=== PATIENT | male | born 1980 | race Caucasian/White ===

== ENCOUNTER 2022-04-10 13:07 | Inpatient (IN) | payer OTHER ==
[~2022-04-10] VITALS: Ht 195.6 cm; Wt 147.0 kg
[2022-04-10 15:30] LABS: RED BLOOD COUNT 4.54 M/UL (4.20-5.50); WHITE BLOOD COUNT 23.6 K/UL (4.5-11.0)
[2022-04-10 15:54] LABS: BUN/CREATININE RATIO 24 (0-10)
[2022-04-10] MEDS ORDERED: GABAPENTIN600 MG PO ×2 (18:12→18:13)
[2022-04-10] MEDS ORDERED: HYDROXYZINE HCL25 MG PO (18:13)
[2022-04-10] MEDS ORDERED: BUSPIRONE HCL30 MG PO (18:13)
[2022-04-10] MEDS ORDERED: TYLENOL 8 HOUR650 MG PO (18:14)
[2022-04-10] MEDS ORDERED: VIIBRYD40 MG PO (18:14)
[2022-04-10] MEDS ORDERED: HUMALOG100 UNIT/3 SQ (18:14)
[2022-04-10] MEDS ORDERED: ASPIRIN81 MG PO (18:15)
[2022-04-10] MEDS ORDERED: CLONIDINE HCL0.1 MG PO (18:15)
[2022-04-10] MEDS ORDERED: ATORVASTATIN CA20 MG PO (18:15)
[2022-04-10] MEDS ORDERED: ALLOPURINOL100 MG PO (18:15)
[2022-04-10] MEDS ORDERED: LISINOPRIL40 MG PO (18:15)
[2022-04-10] MEDS ORDERED: MONTELUKAST SOD10 MG PO (18:16)
[2022-04-10] MEDS ORDERED: LEVEMIR FL100 UNIT/1 SQ (18:16)
[2022-04-10] MEDS ORDERED: METFORMIN HCL1000 MG PO (18:16)
[2022-04-10] MEDS ORDERED: HYDROCHLOROTHIA25 MG PO (18:16)
[2022-04-10] MEDS ORDERED: PROTONIX 40 MG40 M1 PO (18:16)
[2022-04-10] MEDS ORDERED: SENNA8.6 MG PO (18:17)
[2022-04-10] MEDS ORDERED: ACTOS15 MG PO (18:17)
[2022-04-10] MEDS ORDERED: ROBAXIN 750 MG750 MG PO (18:18)
[2022-04-10] MEDS ORDERED: PRAZOSIN HCL2 MG PO (18:18)
[2022-04-10] MEDS ORDERED: MELOXICAM15 MG PO (18:18)
[2022-04-10] MEDS ORDERED: OZEMPIC0.25 MG/0. SQ (18:18)
[2022-04-10] MEDS ORDERED: VITAMIN B COMP1 EAC1 PO (18:19)
[2022-04-11 04:20] LABS: HEMOGLOBIN 13.5 gm/dl (14.0-17.5); RED BLOOD COUNT 4.42 M/UL (4.20-5.50); WHITE BLOOD COUNT 20.4 K/UL (4.5-11.0)
[2022-04-11 05:10] LABS: BUN/CREATININE RATIO 26 (0-10)
--- NOTE | 2022-04-11 17:21 | NUR ---
NOTIFIED MD OF PATIENT WANTING DIFLUCAN. MD ORDER DIFLUCAN 150MG PO ONCE.
[2022-04-12 05:41] LABS: HEMOGLOBIN 12.6 gm/dl (14.0-17.5); RED BLOOD COUNT 4.13 M/UL (4.20-5.50); WHITE BLOOD COUNT 16.3 K/UL (4.5-11.0)
[2022-04-12 06:16] LABS: BUN/CREATININE RATIO 13 (0-10)
[2022-04-12 08:14] LABS: IRON BIND.CAP.(TIBC) 215 ug/dL (250-450); IRON SATURATION 7 % (15-55); IRON, SERUM 15 ug/dL (38-169); UIBC 200 ug/dL (111-343)
[2022-04-13 13:24] LABS: BUN/CREATININE RATIO 12 (0-10)
[2022-04-14 10:03] LABS: BUN/CREATININE RATIO 12 (0-10)
[2022-04-15 06:49] LABS: BUN/CREATININE RATIO 12 (0-10)
--- NOTE | 2022-04-15 18:27 | NUR ---
PATIENT STATED MORPHINE IS MAKING HIM ITCH ALL OVER. REQUESTED HYDROCODONE 7.5MG FOR PAIN, STATES PAIN IS NOT CONTROLLED. MD MADE AWARE. MD MADE MEDICATION ADJUSTMENTS. MD STATED MORPHINE TO BE USED FOR DRESSING CHANGES ONLY.
[2022-04-16 05:51] LABS: HEMOGLOBIN 12.5 gm/dl (14.0-17.5); RED BLOOD COUNT 4.16 M/UL (4.20-5.50); WHITE BLOOD COUNT 11.3 K/UL (4.5-11.0)
[2022-04-16 06:07] LABS: BUN/CREATININE RATIO 15 (0-10)
--- NOTE | 2022-04-17 03:10 | NUR ---
DRESSING CHANGE COMPLETED ON RIGHT FOOT SURGICAL WOUND, WOUNDS CLEANED WITH NORMAL SALINE, FOOT CLEANED WITH SOAP AND WATER, WOUNDS PACKED WITH PACKING MATERIAL SOAKED IN IODINE, NON-STICK BANDAGE PLACED OVER WOUNDS AND FOOT WRAPPED, WOUND ON LATERAL PORTION OF THE FOOT IS RED EXTENDING INTO THE GREAT TOE, PATIENT GIVE MORPHINE FOR PAIN PRIOR TO PROCEDURE, PATIENT TOLERATED PROCEDURE WELL WITH MINIMAL PAIN
[2022-04-17 06:16] LABS: HEMOGLOBIN 12.2 gm/dl (14.0-17.5); RED BLOOD COUNT 4.02 M/UL (4.20-5.50)
[2022-04-17 06:38] LABS: BUN/CREATININE RATIO 10 (0-10)
[2022-04-18 05:53] LABS: HEMOGLOBIN 12.4 gm/dl (14.0-17.5); RED BLOOD COUNT 4.06 M/UL (4.20-5.50); WHITE BLOOD COUNT 9.1 K/UL (4.5-11.0)
[2022-04-18 06:16] LABS: BUN/CREATININE RATIO 11 (0-10)
[2022-04-19] MEDS ORDERED: GABAPENTIN300 MG PO (18:06)
[2022-04-19] MEDS ORDERED: INVANZ (18:06)
[2022-04-19] MEDS ORDERED: VANCO (18:06)
[2022-04-20 06:28] LABS: HEMOGLOBIN 12.3 gm/dl (14.0-17.5); WHITE BLOOD COUNT 8.7 K/UL (4.5-11.0)
[2022-04-20 06:55] LABS: BUN/CREATININE RATIO 13 (0-10)
[2022-04-20] MEDS ORDERED: GABAPENTIN300 MG PO (08:10)
--- NOTE | 2022-04-20 14:22 | NUR ---
Spoke with charhouse worker and Dr. Caldwell about patient being transported to [facility] with PICC line via family member. Both said that was okay due to him not having a history of drug abuse.
--- NOTE | 2022-04-20 14:25 | NUR ---
Called report to laminate floor installer at [facility].
--- NOTE | 2022-04-20 16:07 | NUR ---
Patients home medication given back to patient at discharge.
--- NOTE | 2022-04-20 16:25 | NUR ---
prior to d/c informed patient of picc line will be left in placed and that the importance of using it for the purpose of care home antibiotics and no other unnecessary use. patient stated that he does not use illegal drugs and does not intent to use now and the family member who will pick him up will take him to [facility] office if he does that kind of stuff. patient will go from [facility] directly to [facility].
== END 2022-04-20 16:08 | disposition swing bed (61) | DRG 264 ==
LOC: ER1 13:07 → MED SURG 4 17:42 → CDU 17:42 → MED SURG 4 04-11 14:15
PROVIDERS: Family Medicine; Internal Medicine; Podiatrist Foot & Ankle Surgery; ADMIT Internal Medicine
PROC: 0JBQ0ZZ Excision of Right Foot Subcutaneous Tissue and Fascia, Open Approach (ICD-10-PCS; 2022-04-13)
PROC: 0SBN0ZZ Excision of Left Metatarsal-Phalangeal Joint, Open Approach (ICD-10-PCS; principal; 2022-04-15 10:45)
DX: E11.52 Type 2 diabetes mellitus with diabetic peripheral angiopathy with gangrene (principal); E87.1 Hypo-osmolality and hyponatremia; L03.115 Cellulitis of right lower limb; E87.2 Acidosis; E11.621 Type 2 diabetes mellitus with foot ulcer; E11.65 Type 2 diabetes mellitus with hyperglycemia; E66.9 Obesity, unspecified; D50.9 Iron deficiency anemia, unspecified; E83.42 Hypomagnesemia; L97.519 Non-pressure chronic ulcer of other part of right foot with unspecified severity; D72.829 Elevated white blood cell count, unspecified; F43.10 Post-traumatic stress disorder, unspecified; J44.9 Chronic obstructive pulmonary disease, unspecified; G47.00 Insomnia, unspecified; E11.40 Type 2 diabetes mellitus with diabetic neuropathy, unspecified; E87.6 Hypokalemia; I10 Essential (primary) hypertension; F17.210 Nicotine dependence, cigarettes, uncomplicated; Z89.422 Acquired absence of other left toe(s); Z79.4 Long term (current) use of insulin; Z79.899 Other long term (current) drug therapy; Z68.38 Body mass index [BMI] 38.0-38.9, adult; Z79.82 Long term (current) use of aspirin
CPT/HCPCS: 36415; 71045; 73630; 73701; 73718; 80048; 80053; 80202; 81001; 82550; 82962; 83036; 83540; 83550; 83605; 83735; 83880; 84100; 85025; 85027; 85610; 85652; 86140; 87040; 87070; 87077; 87086; 87186; 87205; 93925; 96372; 96374; 96375; 96376; 97116; 97161; 99285; C1751; J0360; J1335; J1650; J2001; J2185; J2250; J2270; J2405; J2543; J2704; J2795; J3010; J3370; J7030; J7050; J7070; Q9967; U0002

== ENCOUNTER → 2022-05-25 | Day surgery (SDC) | payer OTHER ==
[~2022-05-25] VITALS: Ht 195.6 cm; Wt 171.5 kg
[~2022-05-25] MED LIST: ACTOS15 MG PO; ALLOPURINOL100 MG PO; AMLODIPINE BES2.5 MG PO; ASPIRIN81 MG PO; ATORVASTATIN CA20 MG PO; BUSPIRONE HCL30 MG PO; CLONIDINE HCL0.1 MG PO; GABAPENTIN300 MG PO; GABAPENTIN600 MG PO; GLIPIZIDE ER5 MG PO; HUMALOG100 UNIT/3 SQ; HYDROCHLOROTHIA25 MG PO; HYDROXYZINE HCL25 MG PO; INVANZ; KRISTALOSE10 GM PO; LASIX40 MG PO; LEVEMIR FL100 UNIT/1 SQ; LISINOPRIL40 MG PO; LOVENOX; MELOXICAM15 MG PO; METAMUCIL PACK3.4 GM PO; METFORMIN HCL1000 MG PO; MONTELUKAST SOD10 MG PO; OZEMPIC0.25 MG/0. SQ; PRAZOSIN HCL2 MG PO; PROTONIX 40 MG40 M1 PO; ROBAXIN 750 MG750 MG PO; SENNA8.6 MG PO; TYLENOL 8 HOUR650 MG PO; VANCO; VANCOMYCIN1.75 GM/17 IV; VIIBRYD40 MG PO; VITAMIN B COMP1 EAC1 PO
[2022-05-25 07:22] LABS: HEMOGLOBIN 12.5 gm/dl (14.0-17.5); RED BLOOD COUNT 4.29 M/UL (4.20-5.50); WHITE BLOOD COUNT 8.6 K/UL (4.5-11.0)
[2022-05-25 07:35] LABS: BUN/CREATININE RATIO 17 (0-10)
== END | disposition home or self-care (01) ==
LOC: OR 06:24
PROVIDERS: Podiatrist Foot & Ankle Surgery
DX: M21.961 Unspecified acquired deformity of right lower leg (principal); E11.628 Type 2 diabetes mellitus with other skin complications; S91.301A Unspecified open wound, right foot, initial encounter; I10 Essential (primary) hypertension; E11.40 Type 2 diabetes mellitus with diabetic neuropathy, unspecified; J44.9 Chronic obstructive pulmonary disease, unspecified; E11.65 Type 2 diabetes mellitus with hyperglycemia; F17.210 Nicotine dependence, cigarettes, uncomplicated; E66.9 Obesity, unspecified; Z88.8 Allergy status to other drugs, medicaments and biological substances; Z79.899 Other long term (current) drug therapy
CPT/HCPCS: 73630; 80048; 82962; 83036; 85027; 87070; 87077; 87186; 87205; 93005; J0690; J1100; J1170; J1885; J2001; J2250; J2405; J2704; J2795; J3010; J3370; Q4133

== ENCOUNTER → 2022-06-23 | Outpatient (CLI) | payer OTHER | LOC: KOH-I 10:24 | DX: M25.572 Pain in left ankle and joints of left foot (principal); M25.571 Pain in right ankle and joints of right foot; Z89.431 Acquired absence of right foot; Z89.432 Acquired absence of left foot | CPT/HCPCS: 73610; 73630 ==